=== PATIENT | female | born 1965 | race Asian ===

== ENCOUNTER → 2019-07-29 | Outpatient (CLI) | payer OTHER ==
[~2019-07-29] MED LIST: GADOTERATE 7.5 MMOL/15 ML SYR ONE; OMNIPAQUE 350 MG/ML, 100ML BOTTLE ONE
[2019-07-29 12:44] LABS: CREATININE 0.87 mg/dL (0.55-1.02)
== END | disposition home or self-care (01) ==
LOC: RAD 11:44 → EDSTATUS 12:30
PROVIDERS: ATTEND Family Medicine
DX: H46.9 Unspecified optic neuritis (principal); N32.89 Other specified disorders of bladder; R76.12 Nonspecific reaction to cell mediated immunity measurement of gamma interferon antigen response without active tuberculosis; H15.0 Scleritis; Z90.89 Acquired absence of other organs
CPT/HCPCS: 36415; 70543; 70553; 71250; 74177; 82565; A9575; Q9967

== ENCOUNTER 2019-10-14 08:56 | Emergency (ER) | payer OTHER ==
[~2019-10-14] VITALS: Ht 172.7 cm; Wt 75.6 kg
[2019-10-14 08:58] VITALS: BP 173/94
[2019-10-14] MEDS ORDERED: FLUORESCEIN OPHTHALMIC 1 MG STRIP ONE (09:12)
--- NOTE | 2019-10-14 09:16 | NUR ---
FIRST CONTACT WITH PT. PT C/O BILAT EYES RED/SWELLING/WATERY/ITCHY X4-5 DAYS- STARTED WHILE IN [place], DENIES INJURY OR RECENT ILLNESS. PT'S AOX4. RESPS EVEN AND UNLABORED.
--- NOTE | 2019-10-14 09:54 | NUR ---
Patient given discharge instructions and they have confirmed that they understand the instructions. Patient ambulatory with steady gait.
== END 2019-10-14 09:55 | disposition home or self-care (01) ==
LOC: ED 09:20
DX: H10.233 Serous conjunctivitis, except viral, bilateral (principal)
CPT/HCPCS: 99283

== ENCOUNTER → 2020-10-06 | Outpatient (CLI) | payer OTHER | END | disposition home or self-care (01) | LOC: CFH 09:26 | DX: Z12.31 Encounter for screening mammogram for malignant neoplasm of breast (principal) | CPT/HCPCS: 77067 ==

== ENCOUNTER → 2020-10-26 | Outpatient (CLI) | payer OTHER | END | disposition home or self-care (01) | LOC: CFH 08:43 | DX: J98.4 Other disorders of lung (principal); Z86.11 Personal history of tuberculosis | CPT/HCPCS: 71250 ==

== ENCOUNTER → 2021-04-07 | Outpatient (CLI) | payer OTHER | END | disposition home or self-care (01) | LOC: RAD 14:55 | DX: M25.762 Osteophyte, left knee (principal); M25.761 Osteophyte, right knee | CPT/HCPCS: 73565 ==

== ENCOUNTER → 2021-05-08 | Outpatient (CLI) | payer OTHER | END | disposition home or self-care (01) | LOC: CVU 14:45 | DX: R06.00 Dyspnea, unspecified (principal); I10 Essential (primary) hypertension; E11.9 Type 2 diabetes mellitus without complications | CPT/HCPCS: 93306 ==